=== PATIENT | female | born 1970 | race African-American/Black ===

== ENCOUNTER 2020-04-16 08:53 | Emergency (ER) | payer OTHER ==
[~2020-04-16] VITALS: Ht 154.9 cm; Wt 77.1 kg
--- NOTE | 2020-04-16 09:19 | Emergency Department Note ---
History of Present Illnes History of Present Illness Chief Complaint: General Medicine Complaints History of Present Illness This is a 49 year old female, with a history of breast cancer age 37, who presents with a 2 day history of bright red blood per rectum. Patient states that 2 days ago she noticed a small amount of red blood on the toilet tissue, when she is wiping following a painless bowel movement. She denies any constipation or straining with bowel movements. She's had no abdominal pain or cramping. She states that both yesterday and today she has passed stool, followed by bright red blood, and then noted blood on the toilet tissue. She denies any dizziness, weakness, chest pain, or shortness of breath. Patient states she had a colonoscopy approximately one year ago, due to her history of breast cancer, and it was reportedly normal. Patient was diagnosed with right sided breast cancer in 2007, for which she underwent a radical mastectomy, radiation, and chemotherapy. She currently takes tamoxifen, and has been taking it for the past 3 years. Historian: Patient Arrival Mode: Car Cable Inspector Required: No Onset (how long ago): day(s) (2) Location: GI Quality: painless bleeding Radiation: Reports non-radiation Severity: moderate Onset quality: sudden Duration (how long): day(s) (2) Timing of current episode: intermittent Progression: unchanged Chronicity: new Context: Denies recent illness Relieving factors: none Exacerbating factors: none Associated symptoms: Denies chest pain, Denies fever/chills, Denies loss of appetite, Denies nausea/vomiting, Denies shortness of breath, Denies syncope, Denies weakness Treatments prior to arrival: none Risk factors: History of breast cancer Past Medical/Family History Physician Review I have reviewed the patient's past medical and family history. Any updates have been documented here. Past Medical History Recent Fever: No Clinical Suspicion of Infectio: No New/Unexplained Change in Ment: No Past Medical History: Cancer Other Medical History: BREAST CANCER-RIGHT in 2007, s/p mastectomy, radiation and chemotherapy Past Surgical History: Hysterectomy, Mastectomy Other Surgery: RIGHT BREAST MASTECTOMY Social History Smoking Cessation: Never Smoker Alcohol Use: None Any Illegal Drug Use: No TB Exposure/Symptoms: No Physically hurt or threatened: No Family History Family history of heart diseas: No Other Last Tetanus: unknown Any Pre-Existing Lines (PICC,: No Review of Systems Review of Systems Constitutional: Denies chills, Denies fever, Denies weakness EENTM: Reports no symptoms Cardiovascular: Denies chest pain, Denies palpitations Respiratory: Denies cough, Denies dyspnea Gastrointestinal: Denies abdominal pain, Denies constipation, Denies diarrhea, Denies nausea, Denies vomiting Genitourinary: Denies dysuria, Denies frequency Musculoskeletal: Denies muscle pain, Denies neck pain Integumentary: Denies change in color, Denies rash Neurological: Denies headache, Denies paresthesia Endocrine: Reports no symptoms Hematological/Lymphatic: Reports no symptoms Review of other systems: All other systems negative Physical Exam Related Data Vital signs reviewed: Yes Physical Exam CONSTITUTIONAL Constitutional: Present well-developed, Present well-nourished; Absent distressed, Absent ill appearing HENT HENT: Present normocephalic, Present atraumatic, Present oropharynx clear/moist, Present nose normal HENT L/R: Present left ext ear normal, Present right ext ear normal EYES Eyes: Reports PERRL, Reports conjunctivae normal NECK Neck: Present ROM normal PULMONARY Pulmonary: Present effort normal, Present breath sounds normal CARDIOVASCULAR Cardiovascular: Present regular rhythm, Present heart sounds normal, Present capillary refill normal, Present normal rate; Absent murmur GASTROINTESTINAL Abdominal: Present soft, Present nontender, Present bowel sounds normal, Present other (Rectal - no external hemorrhoids, no palpable internal hemorrhoids, blood tinged brown stool in vault, HEME POSITIVE;); Absent distension, Absent tender, Absent guarding, Absent rebound GENITOURINARY Genitourinary: Present exam deferred SKIN Skin: Present warm, Present dry; Absent bruising MUSCULOSKELETAL Musculoskeletal: Present ROM normal NEUROLOGICAL Neurological: Present alert, Present oriented x 3, Present no gross motor or sensory deficits PSYCHOLOGICAL Psychological: Present mood/affect normal, Present judgement normal Results Laboratory Lab results reviewed: Yes Imaging Imaging results reviewed: Yes Impressions Ordered by: MUNDO ESPINO MD Report #: [id number] Location: [facility] Room/Bed: Procedure: [id number] HOPD/CT ABD/PEL WO CONTRAST-HOPD Exam Date: 04/16/20 Exam Time: 1034 REPORT STATUS: Signed TECHNIQUE: CT of the abdomen and pelvis WITHOUT intravenous contrast and WITHOUT oral contrast. Dose modulation, iterative reconstruction, and/or weight-based adjustment of the mA/kV was utilized to reduce the radiation dose to as low as reasonably achievable. INDICATION: 49-year-old woman with rectal bleeding and abdominal bloating. COMPARISON: None. FINDINGS: ABSENCE OF INTRAVENOUS CONTRAST DECREASES SENSITIVITY FOR DETECTION OF FOCAL LESIONS AND VASCULAR PATHOLOGY. LOWER THORAX: Unremarkable. HEPATOBILIARY: No focal hepatic lesions. Gallbladder is unremarkable. No biliary ductal dilatation. SPLEEN: No splenomegaly. PANCREAS: No focal masses or ductal dilatation. ADRENALS: No adrenal nodules. KIDNEYS/URETERS: No hydronephrosis or mass. 0.2 cm nonobstructive calculus in the left upper pole. PELVIC ORGANS/BLADDER: Prior hysterectomy. No adnexal mass. Bladder is unremarkable. PERITONEUM/RETROPERITONEUM: Trace free fluid in the pelvis, nonspecific. No free air. LYMPH NODES: No lymphadenopathy. VESSELS: Unremarkable. GI TRACT: Stomach is distended with fluid with apparent wall thickening of the gastric pylorus. Normal appendix. BONES AND SOFT TISSUES: Bones are unremarkable. Bilateral breast prostheses. Clips in the anterior abdominal wall. IMPRESSION: Apparent wall thickening of the gastric pylorus with distention of the stomach. Gastric outlet obstruction cannot be excluded in the correct clinical setting. If indicated, upper endoscopy may be obtained for further evaluation. Nonobstructive left renal calculus. Signed by: Odalis Do MD on 04/16/2020 11:08 AM Dictated By: ODALIS DO MD 07 Transcribed By: MUSTAPHA on 04/16/201107 COPY TO: MUNDO ESPINO MD~ Imaging Comments CBC - nl, WBC = 6.8, H/H = 13/42.9, plt = 183k; CMP - normal; Procedures 12 Lead ECG Interpretation ECG Interpretation : ECG: ECG 1 Cable Inspector: Interpreted by ED physician Date: Apr 16, 2020 Time: 09:28 Assessment & Plan Medical Decision Making MDM 12:15 pm - no beds available at [facility]; 12:25 - [facility] contacted for bed availability; 12:36 - case discussed with Dr. Tabby Puga, GI at [facility], who agreed to accept patient in transfer for GI consultation; 12:55 - case discussed with Dr. Maxine LAROSE, Hospitalist at [facility], who accepted transfer of patient. 13:48 - pt remains medically stable for transfer; awaiting EMS transport. Assessment & Plan Final Impression: (1) GI bleeding (2) Rectal bleeding (3) Heme positive stool Depart Disposition: TRANS TO OTHER [facility] ([facility]) MUNDO ESPINO MD Apr 16, 2020 09:19
--- OUTSIDE RECORDS SUMMARY | 2020-04-16 10:11 | XMS REPORT | Continuity of Care Document ---
Author Author [facility] t Organization [facility] Address [address] [place] [address] Phone Unavailable Care Team Providers Care Automotive Service Director Name Role Phone Narayan Avery Attphys Unavailable Payers Payer Name Policy Type Policy Number Effective Date Expiration Date S ource Problems This patient has no known problems. Allergies, Adverse Reactions, Alerts Allergy Name Allergy Type Status Severity Reaction(s) Onset Date Inacti ve Date Treating Clinician Comments Source Iodine and Iodide Containing Produc DA Active SV 2018-02-09 9 00:00:00 [facility] prednisone DA Active MO 2018-02-27 00:00:00 [facility] Iodine and Iodide Containing Produc FA Active SV 2018-02-09 9 00:00:00 [facility] Prednisone Propensity to adverse reactions to drug Active 2015-03-01 00:00:[address] [facility] No Known Contrast Allergies DA Active U 2008-03-30 00:00: 00 [facility] No Known Drug Allergies DA Active U 2008-03-30 00:00:00 [facility] No Known Other Allergies DA Active U 2008-03-30 00:00:00 [facility] PEACHES DA Active U 2008-03-30 00:00:00 [facility] Social History Social Habit Start Date Stop Date Quantity Comments Source Sex Assigned At [facility] Medications Ordered Medication Name Filled Medication Name Start Date Stop Da te Current Medication? Ordering Clinician Indication Dosage Frequency Signature (SIG) Comments Components Source clonazePAM (KLONOPIN) 1 mg tablet 2015-02-08 08:42:47 Yes 1mg Take 1 mg by mouth 2 times daily as needed for Anxiety. [facility] LORazepam (ATIVAN) 1 mg tablet 2015-02-08 08:42:47 Yes 1mg Take 1 mg by mouth every 6 hours as needed for Anxiety. [facility] citalopram (CELEXA) 40 mg tablet 2015-02-08 08:42:47 Yes 40mg QD Take 40 mg by mouth daily. [facility] zolpidem (AMBIEN) 10 mg Tab 2015-02-08 08:42:47 Yes Take by mouth at bedtime nightly. [facility] venlafaxine (EFFEXOR XR) 37.5 mg extended release capsule 2015-02-08 08:42:47 Yes 37.5mg QD Take 37.5 mg by mouth daily. [facility] traMADol (ULTRAM) 50 mg tablet 2015-02-08 00:00:00 Yes Dental abscess 50mg Take 1 tablet by mouth every 6 hours as needed for [place] n. [facility] Procedures This patient has no known procedures. Plan of Care Planned Activity Planned Date Details Comments Source [facility] Scheduled Test 2020-03-11 00:00:00 IMM Influenza Seas onal Mar to August (>/= 19 yrs) [code = IMM Influenza Seasonal Mar to August (>/= 19 yrs)] [facility] Scheduled Test 2011 00:00:00 Breast Cancer Scrn (Yearly) [code = Breast Cancer Scrn (Yearly)] [facility] Scheduled Test 2001 00:00:00 Screening for yaquelin gnant neoplasm of cervix (procedure) [code = 274119510] [facility] Scheduled Test 2001 00:00:00 Screening for yaquelin gnant neoplasm of cervix (procedure) [code = 770080616] [facility] Encounters Start Date/Time End Date/Time Encounter Type Admission Type Att[facility] Care Department Encounter ID Source 2016-10-30 00:00:00 2016-10-30 00:00:00 Outpatient [facility] [id number] [facility] Results Test Description Test Time Test Comments Results Result Comments Source NM BONE SCAN WHOLE BODY 2019-01-28 11:32:20 CLIN ICAL INDICATION: C50.511 Malig neoplm of lower-outer quadrant of right female breastMODALITY: [facility] dual head gamma cameraTECHNIQUE: 25 mCi Tc 99m MDP are injected IV. After a suitable time delay, whole body imaging images are obtained.FINDINGS:COMPARISON: Previous breast mammogram, ultrasound and MRI exams.Symmetric bilateral renal function is observed.Mild to moderate periodontal uptake is noted, maxilla greater than mandible.Mild arthritic uptake is seen at the shoulders bilaterally, mild to moderate uptake is seen at the left medial wrist and bilateral hips. Mild to moderate uptake is present at the left T1 costovertebral junction.No lytic or blastic osseous metastatic lesions are demonstrated.IMPRESSION:No visualized osseous metastasis.PQRS 147: 3570F - CT ABD PELVIS W/O CONT 2019-01-23 12:35:00 Pa tient Name: JESSICA FOWLER Unit No: [id number] EXAMS: CPT CODE: [id number] CT ABD PELVIS W/O CONT 56232 C3 TIME OF STUDY: 01/23/2019 10:46 AM REASON FOR EXAM: BREAST CANCER/WT LOSS COMPARISON: 02/17/2018 TECHNIQUE: Helical non- contrast enhanced images were obtained through the abdomen and pelvis. Oral contrast is given. Sagittal and coronal reformats were obtained and reviewed. Exam is suboptimal due to lack of IV contrast. One or more of the following radiation dose reduction techniques was used: automated exposure control, adjustment of mA and/or KV according to patient size, and/or utilization of iterative reconstruction technique. FINDINGS: CT Abdomen: The included lung bases are clear. No radiopaque calculi are seen in the gallbladder. The liver, pancreas, kidneys, adrenal glands and spleen all have normal appearance. There is no mesenteric or retroperitoneal adenopathy. The bowel loops are nondilated. A normal appendix is visualized. There is no free fluid or free air. The osseous structures are age-appropriate. CT Pelvis: The ureters and bladder are grossly normal. There is no free air, free fluid, loculated collection or adenopathy in the pelvis. The osseous and soft tissue structures are age appropriate. IMPRESSION: 1. No acute abnormalities in the abdomen or pelvis. Exam is suboptimal due to lack of IV contrast. at 1235 Reported and signed by: Drake Louise MD CC: Tan DEE; Toni Hawley Technologist: Leon Murphy RT(R); Rosalee CTDI: DLP: Trnscrpt: 01/23/2019 (1234) [email or web address] TRAVIS Jac NAME: JESSICA FOWLER [id number] PHYS: [email or web address] [address] : 1970 AGE: 48 SEX: F LOC: SueCTS PHONE #: [phone] EXAM DATE: 01/23/2019 STATUS: REG CLI FAX #: [phone] RAD #: [id number] D/C DT PAGE 1 Signed Report Patient Name: JESSICA FOWLER Unit No: [id number] EXAMS: CPT CODE: [id number] CT ABD PELVIS W/O CONT 63297 <Continued> Orig Print D/T: S: 01/23/2019 (1234) TING Nathan NAME: JESSICA FOWLER [id number] PHYS: [email or web address] [address] : 1970 AGE: 48 SEX: F LOC: SueCTS PHONE #: [phone] EXAM DATE: 01/23/2019 STATUS: REG CLI FAX #: [phone] RAD #: [id number] D/C DT PAGE 2 Signed Report CR - XRAY XRAY DEXA BONE DENSITY 2019-01-08 11:49:00 CLINICAL INDICATION: C50.919 Malignant neoplasm of unsp site of unspecified female breast TECHNIQUE: Bone densitometry is performed using the Hologic Dexa. Imaging of the spine and hip are performed. Quantitative analysis is accomplished.FINDINGS:COMPARISON: No prior study.The BMD at the left femoral neck is 0.815 gms/cm.sq. This is consistent with young adult T-score of -1.0 and age matched Z-score of -0.6.The BMD at the right femoral neck is 0.730 gms/cm.sq. This is consistent with young adult T-score of -1.6 and age matched Z-score of -1.2.Average bone mineral density of L1 - L4 is 0.904 gms/cm.sq. This is consistent with young adult T-score of -2.2 and age matched Z-score of - 1.6.FRAX Version 3.08 (10 year fracture risk)Major Osteoporotic Fracture: 1.5%Hip Fracture: 0.1%IMPRESSION:1. WHO diagnostic category is osteopenia based upon lumbar spine and right femoral neck.2. Consider 1-year imaging follow-up. US BREAST COMPLETE UNL LT/RT 2019-01-08 11:27:01 CLINICAL INDICATION: C50.919 Malignant neoplasm of unsp site of unspecified female breastHISTORY: 48-year-old female who was status post right mastectomy in 2008 and right breast reconstruction in 2009. Currently, the patient describes itching and a questionable palpable area of concern in the left breast inferiorly.TECHNIQUE: Realtime and Doppler color breast imaging are performed on the Liquavista ultrasound device . Radial and antiradial imaging is accomplished in all quadrants. Imaging of the axillary regions performed. This represents a unilateral left breast ultrasound exam.COMPARISON STUDY: No prior study. FINDINGS:Sonography of the area of concern in the left breast shows no hypoechoic mass, solid nodule or cyst. Survey of the entire left breast and left axilla is unremarkable.IMPRESSI ON:No evidence of malignancy. RECOMMENDATION: Follow-up diagnostic mammogram in 1 year.Category: BIRADS 1 - Negative. For internal use only. N:12 Mammo Digital Mammography Diagnostic, Unilat 2019-01-08 11:00:35 CLINICAL INDICATION: C50.919 Malignant neoplasm of unsp site of unspecified female breastHISTORY: 48-year-old female who was status post right mastectomy in 2007 and right breast reconstruction in 2009. Currently, the patient describes itching and a questionable palpable area of concern in the left breast inferiorly.MODALITY: Siemens Novation Full Field Digital MammographyTECHNIQUE: Digital acquisition of the breasts is performed on the ACR accredited Full Field Digital Mammography Unit. Computer Assisted Detection (CAD) is then accomplished using nGame [employer]. Full compression and implant displaced bilateral CC and MLO views were obtained.FINDINGS:COMPARISON STUDY: Back to 11/09/2014.There are scattered fibroglandular tissues in both breasts. No dominant mass, skin thickening, architectural distortion or suspicious microcalcifications are identified.Ultrasound findings: Sonography of the area of concern in the left breast shows no hypoechoic mass, solid nodule or cyst. Survey of the entire left breast and left axilla is unremarkable.IMPRESSION:No evidence of malignancy. RECOMMENDATION: Follow-up diagnostic mammogram in 1 year.Category: BIRADS 1 - Negative. For internal use only. N:12 - XR HAND 3+V LT 2018-12-25 15:26:00 Patient N dori: JESSICA FOWLER Unit No: [id number] EXAMS: CPT CODE: [id number] XR HAND 3+V LT 73 130 EXAMINATION: - XR HAND 3+V LT, - XR WRIST 3+V LT. LOCATION: B2. HISTORY: PAIN. COMPARISON: None. TECHNIQUE: AP, lateral, and oblique views of the left hand and wrist were obtained. FINDINGS: No acute fracture or dislocation is identified. Soft tissue structures appear within normal limits. IMPRESSION: No acute osseous abnormality is identified. at 1526 Reported and signed by: Moris Pickens MD CC: Tan DEE; Toni Hawley Technologist: RT Diamond(M)(CT) Transcrpt Date/Tm/Trnsp: 12/25/2018 (1526) [email or web address] Orig Print D/T: S: 12/25/2018 (1529) [facility] NAME: JESSICA FOWLER [id number] [facility] [address] PH[address]: [email or web address] [place] [address] : 1970 AGE: 48 SEX: F LOC: Z.ZRAD PHONE #: [phone] EXAM DATE: 12/25/2018 STATUS: REG CLI FAX #: [phone] RADIOLOGY NO: [id number] PAGE 1 Signed Report - XR WRIST 3+V LT 2018-12-25 15:26:00 Patient Name: JESSICA FOWLER Unit No: [id number] EXAMS: CPT CODE: [id number] XR WRIST 3+V LT 73 110 EXAMINATION: - XR HAND 3+V LT, - XR WRIST 3+V LT. LOCATION: B2. HISTORY: PAIN. COMPARISON: None. TECHNIQUE: AP, lateral, and oblique views of the left hand and wrist were obtained. FINDINGS: No acute fracture or dislocation is identified. Soft tissue structures appear within normal limits. IMPRESSION: No acute osseous abnormality is identified. at 1526 Reported and signed by: Moris Pickens MD CC: Tan DEE; Toni Hawley Technologist: Inga Lainez, RT(M)(CT) Transcrpt Date/Tm/Trnsp: 12/25/2018 (3406) [email or web address] [facility] NAME: JESSICA FOWLER [id number] [facility] [address] PHYS: [email or web address] [place] [address] : 1970 AGE: 48 SEX: F LOC: LILIYA PHONE #: [phone] EXAM DATE: 12/25/2018 STATUS: REG CLI FAX #: [phone] RADIOLOGY NO: [id number] PAGE 1 Signed Report - XR L-SPINE 4+VIEWS 2018-12-25 12:43:00 Patie nt Name: JESSICA FOWLER Unit No: [id number] EXAMS: CPT CODE: [id number] XR L-SPINE 4+VIEWS 69820 LOCATION: T18 EXAM: - XR L-SPINE 4+VIEWS INDICATION: LOWER BACK PAIN, MYALGIA COMPARISON: Lumbar spine radiographs February 27, 2018 TECHNIQUE: AP, lateral, bilateral oblique and coned-down lateral breast lumbar spine. FINDINGS: There are 5 lumbar type nonrib-bearing vertebral segments. Vertebral body heights and disc spaces are preserved throughout. Alignment is satisfactory. There is mild facet hypertrophy lower lumbar spine. SI joints and sacrum are normal. IM PRESSION: Mild lower lumbar facet hypertrophy. at 1243 Reported and signed by: Mark Escobedo MD CC: Tan DEE; Toni Hawley Technologist: Inga Lainez, RT(M)(CT) Transcrpt Date/Tm/Trnsp: 12/25/2018 (5773) [email or web address] Orig Print D/T: S: 12/25/2018 (3139) [facility] NAME: JESSICA FOWLER [address] [address] PHYS: [email or web address] [place] [address] : 1970 AGE: 48 SEX: F LOC: LILIYA PHONE #: [phone] EXAM DATE: 12/25/2018 STATUS: REG CLI FAX #: [phone] RADIOLOGY NO: [id number] PAGE 1 Signed Report MRI BREAST MARIAM WO/W CLINICAL IND ICATION: History of right breast cancer status post mastectomy. The patient is BRCA1 gene positiveMODALITY: Avanto 1.5 Sonia 18 channel MRITECHNIQUE: In-vivo 15 channel dedicated breast coil is used for imaging purposes with patient prone. Imaging is performed on the ACR accredited Siemens Avanto. Pre-contrast imaging including T1, STIR and T2 acquisitions initially performed. Contrast is administered and dynamic sequences are obtained at 67 second intervals over 6 minutes. Post contrast sagittal imaging is performed. Post-processing with MIP and 3-D depiction performed. Quantitative analysis is then accomplished with exsulin. IV contrast, 18 ml Dotarem was administered.FINDINGS:COMPARISON: 11/16/2016 The patient is status post right mastectomy with reconstruction. There are bilateral breast implants. The implants are intact. There is mild parenchymal enhancement in the left breast. There are no suspicious enhancing lesions in either breast. There is no significant axillary or internal mammary lymphadenopathy. The visualized portions of the chest and upper abdomen are unremarkable.IMPRESSION:No suspicious findings in either breast.BIRADS 1 - Negative. For internal use o nly. N:6 MAMMO DIGITAL MAMMOGRAPHY DIAGNOSTIC, BILAT W/ IMPLANTS CLINICAL INDICATION: C50.511 Malig neoplm of lower-outer quadrant of right female breastHISTORY: 46-year-old female who is status post right mastectomy in 2007 and breast reconstruction in 2009. Currently, the patient is asymptomatic. MRI of the breasts performed on 11/16/2016 was negative.MODALITY: Siemens Novation Full Field Digital MammographyTECHNIQUE: Digital acquisition of the breasts is performed on the ACR accredited Full Field Digital Mammography Unit. Computer Assisted Detection (CAD) is then accomplished using [employer]Game [employer]. Full compression and implant displaced views of both breasts were obtained.FINDINGS:COMPARISON STUDY: Back to 11/09/2014.The breasts are predominantly fatty.No change in the appearance of the saline implants.No dominant mass, suspicious microcalcifications, skin thickening or architectural distortion is observed.IMPRESSION:No mammographic evidence of malignancy. RECOMMENDATION: 1-year mammographic follow-up.Category: BIRADS 0 - Incomplete. Needs additional imaging for evaluation. For internal use only. BIRAD:1
--- OUTSIDE RECORDS SUMMARY | 2020-04-16 10:11 | XMS REPORT | Clinical Summary ---
Author Author [facility] Organization [facility] Address Unknown Phone Unavailable Care Team Providers Care Axle Inspector Name Role Phone PCP Unavailable Allergies Comments Active Allergy Reactions Severity Noted Date Muscle weakness Prednisone 03/01/2015 Medications End Date Status Medication Sig Dispensed Refills Start Date Active clonazePAM (KLONOPIN) 1 Take 1 mg by 0 mg tablet mouth 2 times daily as needed for Anxiety. Active LORazepam (ATIVAN) 1 mg Take 1 mg by 0 tablet mouth every 6 hours as needed for Anxiety. Active citalopram (CELEXA) 40 mg Take 40 mg by 0 tablet mouth daily. Active zolpidem (AMBIEN) 10 mg Take by mouth 0 Tab at bedtime nightly. Active venlafaxine (EFFEXOR XR) Take 37.5 mg 0 37.5 mg extended release by mouth capsule daily. Active traMADol (ULTRAM) 50 mg Take 1 tablet 30 tablet 0 tabletIndications: Dental by mouth 5 abscess every 6 hours as needed for Pain. Active Problems Not on file Social History Date Tobacco Use Types Packs/Day Years Used Never Assessed Sex Assigned at Date Recorded Not on file Industry Job Start Date Occupation Not on file Not on file Not on file Travel End Travel History Travel Start No recent travel history available. Last Filed Vital Signs Not on file Plan of Treatment Health Maintenance Due Date Last Done Comments HPV Cervical Cancer Scrn 2001 Pap Cervical Cancer Scrn 2001 Breast Cancer Scrn 2011 (Yearly) IMM Influenza Seasonal 03/11/2020Mar to August (>/= 19 yrs) Results Not on fileafter 04/16/2019 Insurance Type Payer Benefit Subscriber ID Effective Phone Address Plan / Dates Group [facility] xxxxxxxxx 2012-P [phone] [address] [facility] Critical access hospital [id number] [place] [address] (Work)
--- NOTE | 2020-04-16 11:12 | Diagnostic Imaging Report ---
TECHNIQUE: CT of the abdomen and pelvis WITHOUT intravenous contrast and WITHOUT oral contrast. Dose modulation, iterative reconstruction, and/or weight-based adjustment of the mA/kV was utilized to reduce the radiation dose to as low as reasonably achievable. INDICATION: 49-year-old woman with rectal bleeding and abdominal bloating. COMPARISON: None. FINDINGS: ABSENCE OF INTRAVENOUS CONTRAST DECREASES SENSITIVITY FOR DETECTION OF FOCAL LESIONS AND VASCULAR PATHOLOGY. LOWER THORAX: Unremarkable. HEPATOBILIARY: No focal hepatic lesions. Gallbladder is unremarkable. No biliary ductal dilatation. SPLEEN: No splenomegaly. PANCREAS: No focal masses or ductal dilatation. ADRENALS: No adrenal nodules. KIDNEYS/URETERS: No hydronephrosis or mass. 0.2 cm nonobstructive calculus in the left upper pole. PELVIC ORGANS/BLADDER: Prior hysterectomy. No adnexal mass. Bladder is unremarkable. PERITONEUM/RETROPERITONEUM: Trace free fluid in the pelvis, nonspecific. No free air. LYMPH NODES: No lymphadenopathy. VESSELS: Unremarkable. GI TRACT: Stomach is distended with fluid with apparent wall thickening of the gastric pylorus. Normal appendix. BONES AND SOFT TISSUES: Bones are unremarkable. Bilateral breast prostheses. Clips in the anterior abdominal wall. IMPRESSION: Apparent wall thickening of the gastric pylorus with distention of the stomach. Gastric outlet obstruction cannot be excluded in the correct clinical setting. If indicated, upper endoscopy may be obtained for further evaluation. Nonobstructive left renal calculus. Signed by: Steven Toney MD on 04/16/2020 11:08 AM
--- NOTE | 2020-04-16 12:25 | NUR ---
[facility] TRANSFER LINE CALLED, S/W [facility], WILL TRY TO GET PATIENT INTO [facility]. WILL CALL BACK
--- NOTE | 2020-04-16 12:38 | NUR ---
[facility] CALLING BACK TO S/W DR. MATHEWS, S/W DR. CHADWICK ROSADO PENDING FURTHER INSTRUCTIONS
--- NOTE | 2020-04-16 12:56 | NUR ---
DR. LAROSE CALLING TO SPEAK WITH DR. MATHEWS
--- NOTE | 2020-04-16 13:00 | NUR ---
[facility] W/ [facility] GIVING ACCEPTANCE FOR PATIENT TO GO TO [facility] ACCEPTING DR. UBALDO LAROSE @ [address] GO[address] TO [id number] NURSE REPORT [phone] FACESHEET FAX [phone]
--- NOTE | 2020-04-16 13:23 | NUR ---
PATIENT UPDATED ON ROOM ASSIGNMENT AT [facility]
--- NOTE | 2020-04-16 13:57 | NUR ---
REPORT CALLED TO LAURA NGUYEN AT THIS TIME
--- NOTE | 2020-04-16 14:30 | NUR ---
patient departs w/ [facility] to [facility]
== END 2020-04-16 14:30 | disposition other institution (70) ==
LOC: FSED 09:00
DX: K92.2 Gastrointestinal hemorrhage, unspecified (principal); K92.1 Melena; Z85.3 Personal history of malignant neoplasm of breast
CPT/HCPCS: 74176; 80053; 81003; 85025; 85610; 99284

== ENCOUNTER 2025-02-19 10:50 | Emergency (ER) | payer OTHER ==
[~2025-02-19] VITALS: Ht 153.7 cm; Wt 70.3 kg
[~2025-02-19 10:50] MED LIST: CLEOCIN HCL300 MG PO; HYDROCODON-ACE1 EA12 PO
[2025-02-19] MEDS ORDERED: LAMOTRIGINE100 MG PO (11:15)
[2025-02-19] MEDS ORDERED: PERCOCET 10-321 EACH PO (11:15)
[2025-02-19] MEDS ORDERED: INTUNIV3 MG PO (11:15)
[2025-02-19] MEDS ORDERED: HYDROXYZINE HCL25 MG PO (11:15)
[2025-02-19] MEDS ORDERED: KETOROLAC TROMETHAMINE 30 MG/ML VIAL ONE (11:24)
[2025-02-19] MEDS: KETOROLAC TROMETHAMINE 60 MG/2 ML VIAL IM ONE (11:45)
[2025-02-19 13:10] VITALS: PULSE 56; RESP 16; TEMP 98.1; O2SAT 100
== END 2025-02-19 13:10 | disposition home or self-care (01) ==
LOC: FSED 11:00
DX: S20.211A Contusion of right front wall of thorax, initial encounter (principal); W01.198A Fall on same level from slipping, tripping and stumbling with subsequent striking against other object, initial encounter; Y92.89 Other specified places as the place of occurrence of the external cause; N20.0 Calculus of kidney; Z85.3 Personal history of malignant neoplasm of breast
CPT/HCPCS: 71250; 96372; 99283; J1885